=== PATIENT | female | born 1995 | race Native Hawaiian/Other Pacific Islander ===

== ENCOUNTER 2018-01-21 17:55 | Emergency (ER) | payer OTHER ==
[2018-01-21 18:06] VITALS: O2SAT 100
[2018-01-21] MEDS ORDERED: Sodium Chloride 0.9% 1,000 ML IV ONE (18:59)
[2018-01-21 19:19] LABS: BASO # 0.1 K/uL (0.0-0.2); BASO % 0.9 % (0.0-2.0); EOS # 0.1 K/uL (0.0-0.7); LYMPH # 2.4 K/uL (1.0-4.3); LYMPH % 28.3 % (20.0-40.0); MEAN CELL VOLUME 85.3 fL (81.0-99.0); MEAN CORPUSCULAR HEMOGLOBIN 29.4 pg (27.0-31.0); MEAN CORPUSCULAR HGB CONC 34.4 g/dL (33.0-37.0); MEAN PLATELET VOLUME 8.8 fL (7.2-11.7); MONO # 0.7 K/uL (0.0-0.8); MONO % 7.9 % (0.0-10.0); NEUT # 5.3 K/uL (1.8-7.0); NEUT % 61.9 % (50.0-75.0); NRBC % 0.3 % (0.0-2.0); RBC 5.12 Mil/uL (3.80-5.20); WHITE BLOOD COUNT 8.6 K/uL (4.8-10.8)
[2018-01-21] MEDS ORDERED: Sodium Chloride 0.9% 1,000 ML ONE (19:24)
[2018-01-21 19:30] LABS: INR 1.2; PROTHROMBIN TIME 12.7 SECONDS (9.7-12.2)
[2018-01-21 19:32] LABS: ALB/GLOB RATIO 1.4 (1.0-2.1); ALBUMIN 4.8 g/dL (3.5-5.0); ALT/SGPT 20 U/L (9-52); AST/SGOT 25 U/L (14-36); BLOOD UREA NITROGEN 9 mg/dL (7-17); CALCIUM 10.3 mg/dl (8.6-10.4); GFR AFRICAN-AMERICAN > 60; GFR NON-AFRICAN AMERICAN > 60; LIPASE 106 U/L (23-300)
[2018-01-21 19:51] LABS: HCG,QUALITATIVE URINE NEGATIVE (NEGATIVE)
[2018-01-21 19:58] LABS: SQUAMOUS EPITHIAL 1 /hpf (0-5); URINE BACTERIA RARE (<OCC); URINE BILIRUBIN NEGATIVE (NEGATIVE); URINE BLOOD NEGATIVE (NEGATIVE); URINE CLARITY Clear (Clear); URINE COLOR Straw (YELLOW); URINE GLUCOSE (UA) NORMAL (Normal); URINE LEUKOCYTE ESTERASE NEG Leu/uL (Negative); URINE PROTEIN NEGATIVE (NEGATIVE); URINE UROBILINOGEN NORMAL mg/dL (0.2-1.0)
--- NOTE | 2018-01-21 20:07 | C.PDOC ---
History Of Present Illness 22 y/o female presents to the ED complaining of LLQ abdominal pain and scant bright red blood per rectum when wiping today. Denies any SOB, chest pain, weakness, nausea, vomiting, diarrhea, or fever. Of note patient has been treated for chicken pox with antivirals for the last 2 weeks. Time Seen by Provider: 01/21/18 18:38 Chief Complaint (Nursing): Abdominal Pain History Per: Patient History/Exam Limitations: no limitations Onset/Duration Of Symptoms: Hrs Current Symptoms Are (Timing): Still Present Past Medical History Reviewed: Historical Data, Nursing Documentation, Vital Signs Vital Signs: Last Vital Signs Temp 98.4 F 01/21/18 19:55 Pulse 92 H 01/21/18 19:55 Resp 16 01/21/18 19:55 BP 89/62 L 01/21/18 19:55 Pulse Ox 100 01/21/18 20:08 - Medical History PMH: No Chronic Diseases Surgical History: Tonsillectomy Family History: States: No Known Family Hx - Social History Hx Tobacco Use: No Hx Alcohol Use: No Hx Substance Use: No - Immunization History Hx Tetanus Toxoid Vaccination: No Hx Influenza Vaccination: No Hx Pneumococcal Vaccination: No Review Of Systems Except As Marked, All Systems Reviewed And Found Negative. Constitutional: Negative for: Fever, Chills Cardiovascular: Negative for: Chest Pain Respiratory: Negative for: Shortness of Breath Gastrointestinal: Positive for: Abdominal Pain, Other (Rectal bleed). Negative for: Vomiting, Diarrhea Physical Exam - Physical Exam Appears: Non-toxic, No Acute Distress Skin: Warm, Dry, Other (d vesicles noted to neck, w/ few (numbering 10-20) throughout body) Head: Atraumatic, Normacephalic Eye(s): bilateral: Normal Inspection, PERRL, EOMI Oral Mucosa: Moist Neck: Normal ROM, Supple Cardiovascular: Rhythm Regular, No Murmur Respiratory: Normal Breath Sounds, No Accessory Muscle Use Gastrointestinal/Abdominal: Soft, No Tenderness, No Guarding, No Rebound Rectal: Deferred Extremity: Bilateral: Atraumatic, Normal Color And Temperature, Normal ROM Pulses: Left Radial: Normal, Right Radial: Normal Neurological/Psych: Oriented x3, Normal Speech Gait: Steady ED Course And Treatment - Laboratory Results Result Diagrams: 01/21/18 19:16 01/21/18 19:16 Lab Interpretation: Normal (ua neg.) Urine POC: Negative O2 Sat by Pulse Oximetry: 100 (RA) Pulse Ox Interpretation: Normal - Radiology CXR: Interpreted by Me CXR Interpretation: Yes: No Acute Disease - Other Rad abd x 2 X-Ray: Interpreted by Me (+FOS) Reevaluation Time: 20:38 Reassessment Condition: Improved (remains asmptomatic) Medical Decision Making Medical Decision Making: Time: 18:59 Initial Plan: --CMP --CBC --Lipase --PTT --Prothrombin time --UA --X-ray obstructive series --IV fluids --30 mg IV Toradol constipation, abd colic NOT related to recent "chicken pox" ? internal hemorroid on exam diet exercise stool softners reviewed. Disposition Doctor Will See Patient In The: Office Counseled Patient/Family Regarding: Studies Performed, Diagnosis - Disposition Disposition: HOME/ ROUTINE Disposition Time: 20:39 Condition: GOOD Forms: [facility] (Armenian) - Clinical Impression Clinical Impression: Colicky LLQ abdominal pain - Scribe Statement The provider has reviewed the documentation as recorded by the Scribe (Gris June) Provider Attestation: All medical record entries made by the Scribe were at my direction and personally dictated by me. I have reviewed the chart and agree that the record accurately reflects my personal performance of the history, physical exam, medical decision making, and the department course for this patient. I have also personally directed, reviewed, and agree with the discharge instructions and disposition.
[2018-01-21 21:03] VITALS: BP 90/62; PULSE 93; RESP 12; TEMP 97.9
--- NOTE | 2018-01-22 09:39 | RAD ---
PROCEDURE: Radiographs of the chest and abdomen (obstructive series) HISTORY: Abdominal pain COMPARISON: No prior. TECHNIQUE: AP radiograph of the chest, with upright and supine radiographs of the abdomen. FINDINGS: CHEST: Lungs: The lungs are well inflated and clear. Cardiovascular: Normal size heart. No pulmonary vascular congestion. Pleura: No pleural fluid. No pneumothorax. Other findings: None. ABDOMEN AND PELVIS: Bowel: There is moderate amount of stool in the colon. No evidence of mechanical obstruction. Free air: None. Bones: Unremarkable. Other findings: None. IMPRESSION: Constipation. Nonobstructive bowel gas pattern. Clear lungs.
== END 2018-01-21 21:12 | disposition home or self-care (01) ==
LOC: C.ER 17:55
DX: R10.32 Left lower quadrant pain (principal); R10.84 Generalized abdominal pain
CPT/HCPCS: 74022; 80053; 81001; 83690; 84703; 85025; 85610; 85730; 96374; 99285; J1885; J7030

== ENCOUNTER 2018-02-07 14:55 | Emergency (ER) | payer OTHER ==
[2018-02-07 15:21] VITALS: TEMP 98.2
--- NOTE | 2018-02-07 16:38 | RAD ---
PROCEDURE: Radiographs of the neck (soft tissue). HISTORY: ? FB COMPARISON: None. TECHNIQUE: Frontal and Lateral Radiographs of the neck, optimized for soft tissue visualization. FINDINGS: SOFT TISSUES: Unremarkable. No radiopaque foreign body seen. CERVICAL SPINE: Grossly unremarkable. OTHER FINDINGS: None. IMPRESSION: No radiopaque foreign bodies identified
[2018-02-07 17:00] VITALS: BP 90/62; PULSE 87; RESP 18; O2SAT 99
--- NOTE | 2018-02-07 19:00 | C.PDOC ---
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 Patient states that she feels like the tablet is stuck in her throat. Patient reports that she is able to eat and drink. Denies having breathing problems and change in voice. Chief Complaint (Nursing): ENT Problem History Per: Patient History/Exam Limitations: no limitations Onset/Duration Of Symptoms: Hrs Current Symptoms Are (Timing): Still Present Severity: Moderate Past Medical History Reviewed: Historical Data, Nursing Documentation, Vital Signs Vital Signs: Last Vital Signs Temp 98.2 F 02/07/18 15:20 Pulse 87 02/07/18 16:59 Resp 18 02/07/18 16:59 BP 90/62 L 02/07/18 16:59 Pulse Ox 99 02/07/18 19:05 - Medical History PMH: No Chronic Diseases Surgical History: Tonsillectomy Family History: States: No Known Family Hx - Social History Hx Tobacco Use: No Hx Alcohol Use: No Hx Substance Use: No - Immunization History Hx Tetanus Toxoid Vaccination: No Hx Influenza Vaccination: No Hx Pneumococcal Vaccination: No Review Of Systems Except As Marked, All Systems Reviewed And Found Negative. ENT: Positive for: Throat Pain Physical Exam - Physical Exam Appears: Non-toxic, No Acute Distress Skin: Normal Color, Warm, Dry Head: Atraumatic, Normacephalic Eye(s): bilateral: Normal Inspection Nose: Normal Oral Mucosa: Moist Throat: Normal, No Erythema, No Exudate Neck: Supple Chest: Symmetrical Cardiovascular: Rhythm Regular Respiratory: Normal Breath Sounds, No Rales, No Rhonchi, No Stridor, No Wheezing Neurological/Psych: Oriented x3, Normal Speech ED Course And Treatment O2 Sat by Pulse Oximetry: 99 (RA) Pulse Ox Interpretation: Normal - Other Rad X- Ray - Neck X-Ray: Viewed By Me, Read By Radiologist Interpretation: PROCEDURE: Radiographs of the neck (soft tissue). HISTORY: ? FB. COMPARISON: None. TECHNIQUE: Frontal and Lateral Radiographs of the neck , optimized for soft tissue visualization. FINDINGS: SOFT TISSUES: Unremarkable. No radiopaque foreign body seen. CERVICAL SPINE: Grossly unremarkable. OTHER FINDINGS: None. IMPRESSION: No radiopaque foreign bodies identified Medical Decision Making Medical Decision Making: Plan: --X- Ray-Neck -Soft Tissue Updates: X- Ray was negative.Patient has been discharged and instructed to follow up with PMD. Disposition - Disposition Referrals: [facility] Melody Pandey, [Non-Staff] - Disposition: HOME/ ROUTINE Disposition Time: 16:40 Condition: GOOD Additional Instructions: ANGELA DELCID, thank you for letting us take care of you today. Your provider was Trevor Medellin DO and you were treated for THROAT PAIN. The emergency medical care you received today was directed at your acute symptoms. If you were prescribed any medication, please fill it and take as directed. It may take several days for your symptoms to resolve. Return to the Emergency Department if your symptoms worsen, do not improve, or if you have any other problems. Please contact your doctor or call one of the physicians/clinics you have been referred to that are listed on the Patient Visit Information form that is included in your discharge packet. Bring any paperwork you were given at discharge with you along with any medications you are taking to your follow up visit. Our treatment cannot replace ongoing medical care by a primary care provider outside of the emergency department. Thank you for allowing the [place] team to be part of your care today. Follow up with your primary care doctor if you have any concerns. Forms: [facility] (Marshallese) - Clinical Impression Clinical Impression: Throat pain - Scribe Statement The provider has reviewed the documentation as recorded by the Jose Luis Patel Provider Attestation: All medical record entries made by the Jose Luis were at my direction and personally dictated by me. I have reviewed the chart and agree that the record accurately reflects my personal performance of the history, physical exam, medical decision making, and the department course for this patient. I have also personally directed, reviewed, and agree with the discharge instructions and disposition.
== END 2018-02-07 17:00 | disposition home or self-care (01) ==
LOC: C.ER 14:55
DX: R07.0 Pain in throat (principal)